=== PATIENT | male | born 1960 | race Caucasian/White ===

== ENCOUNTER 2016-11-02 11:05 | Emergency (ER) | payer MEDICARE ==
[~2016-11-02] VITALS: Ht 182.9 cm; Wt 76.6 kg
[2016-11-02] MEDS ORDERED: OXYC1TAB63 PO (11:24)
[2016-11-02] MEDS ORDERED: ALPR.5 PO (11:24)
[2016-11-02] MEDS ORDERED: CELE200C PO (11:24)
[2016-11-02] MEDS ORDERED: GABA600T PO (11:24)
[2016-11-02] MEDS ORDERED: LACO100 PO (11:24)
[2016-11-02] MEDS ORDERED: SERT-129 PO (11:24)
[2016-11-02 11:28] VITALS: BP 126/81; PULSE 83; RESP 20; TEMP 98; O2SAT 97
[2016-11-02] MEDS ORDERED: KETOROLAC TROMETHAMINE 60 MG/2 ML (IM) VIAL IM ONE (11:45)
[2016-11-02] MEDS ORDERED: ORPHENADRINE INJ 60 MG/2 ML AMP IM ONE (11:45)
--- NOTE | 2016-11-02 11:45 | PD ---
HPI Chief Complaint: Back/ Neck Pain or Injury Time Seen by Provider: 11:25 Travel History International Travel<30 days: No Contact w/Intl Traveler<30days: No Traveled to known affect area: No History of Present Illness HPI 56 -year-old male with history of chronic back pain presents to the emergency room for evaluation of the same. States about 2 weeks ago he was lifting heavy boxes and has had mid thoracic back pain since. Pain radiates to both sides of his back. He has been taking his prescribed oxycodone and hoping it would get better on its own but it seems to be worsening. He is concerned for a slipped disc. He has not been taking any anti-inflammatories. Patient has had neck surgery. Denies upper or lower extremity paresthesias, saddle anesthesia, difficulty walking, loss of bowel or bladder control, weight loss, fevers, and IV drug use. PFSH Past Medical History Anxiety: Yes Diminished Hearing: No Musculoskeletal: Yes (CHRONIC BACK PAIN, DJD, DDD) Seizures: Yes Tetanus Vaccination: < 5 Years Influenza Vaccination: No ?: Not Social History Alcohol Use: Yes (rare) Tobacco Use: Yes (1/2 ppd) Substance Use: No Allergies-Medications (Allergen,Severity, Reaction): Coded Allergies: Erythromycin (Verified Allergy, Unknown, , 11/02/16) Penicillin (Verified Allergy, Unknown, , 11/02/16) Reported Meds & Prescriptions Reported Meds & Active Scripts Active Robaxin (Methocarbamol) 750 Mg Tab 750 Mg PO Q8HR Ibuprofen 600 Mg Tab 600 Mg PO Q8HR PRN Reported Xanax (Alprazolam) 0.5 Mg Tab 0.5 Mg PO Q6H PRN Sertraline (Sertraline HCl) 100 Mg Tab 100 Mg PO DAILY Celebrex (Celecoxib) 200 Mg Cap 200 Mg PO BID Vimpat (Lacosamide) 100 Mg Tab 250 Mg PO BID Gabapentin 600 Mg Tab 600 Mg PO TID Oxycodone-Acetaminophen 5-325 mg Tab 1-2 Tab PO Q6H PRN Review of Systems Except as stated in HPI: all other systems reviewed are Neg Physical Exam Narrative GENERAL: Well-nourished, well-developed male in no acute distress. Afebrile. Ambulatory. SKIN: Focused skin assessment warm/dry. No erythema or ecchymosis. HEAD: Normocephalic. EYES: No scleral icterus. No injection or drainage. NECK: Supple, trachea midline. No JVD or lymphadenopathy. CARDIOVASCULAR: Regular rate and rhythm without murmurs, gallops, or rubs. RESPIRATORY: Breath sounds equal bilaterally. No accessory muscle use. BACK: Mild tenderness to palpation of the midline thoracic spine. No obvious deformity. No CVA tenderness. 2+ patellar and Achilles reflexes are equal bilaterally. 5/5 strength in bilateral lower extremities. Data Data Last Documented VS Vital Signs Date Time Temp Pulse Resp B/P Pulse Ox O2 Delivery O2 Flow Rate FiO2 11/02/16 11:33 20 11/02/16 11:28 98.0 83 126/81 97 Orders Spine, Thoracic-Ap/Lat/Sw(3vw) (11/02/16 ) Ketorolac Inj (Toradol Inj) (11/02/16 11:45) Orphenadrine Inj (Norflex Inj) (11/02/16 11:45) MDM Medical Decision Making Medical Screen Exam Complete: Yes Emergency Medical Condition: Yes Medical Record Reviewed: Yes Differential Diagnosis Muscle spasm, strain, spondylolisthesis, slipped disc, fracture unlikely Narrative Course 56-year-old male with history of chronic back pain presents to the emergency room for evaluation of mid back pain after lifting heavy boxes 2 weeks ago. His prescribed medications have not been helping. There is mild midline tenderness of thoracic spine without step-off deformity. No focal neurological deficits or red flag symptoms. Patient is ambulatory. Strength 5/5 and equal in bilateral lower extremities. 2+ Achilles and patellar reflexes are equal bilaterally. X-ray shows no acute bony abnormality. Patient given Toradol and Norflex in the emergency room. He was told to follow-up with his primary care physician for outpatient MRI if symptoms persist. Discharged with ibuprofen and Robaxin and told to return to the emergency room for worsening symptoms. He understands and agrees to plan. Diagnosis Primary Impression: Acute mid back pain Referrals: [facility] Patient Instructions: General Instructions, Thoracic Back Strain (ED) Additional Instructions: Rest and drink plenty of fluids. Take Robaxin as directed, as needed for pain. In addition to prescribe pain medication, take ibuprofen with food as directed, as needed for pain. Apply ice to the affected area for 20 minutes at a time, as needed for pain and swelling. Follow-up with a primary care physician. Return to the emergency room for worsening symptoms. Med/Other Pt SpecificInfo: Prescription(s) given Scripts Methocarbamol (Robaxin)750 Mg [id number] Mg PO Q8HR #21 TAB Ref 0 Prov:Brandon Osorio MD 11/02/16 Ibuprofen 600 Mg [id number] Mg PO Q8HR PRN (PAIN) #21 TAB Ref 0 Prov:Brandon Osorio MD 11/02/16 Disposition: 01 DISCHARGE HOME Condition: Stable Amy Peraza Nov 02, 2016 11:45
[2016-11-02] MEDS ORDERED: ROBA750T PO (12:26)
[2016-11-02] MEDS ORDERED: IBUP-232 PO (12:26)
--- NOTE | 2016-11-02 12:33 | RADRPT ---
EXAM DATE/TIME: 11/02/2016 11:41 [facility] COMPARISON: No previous studies available for comparison. INDICATIONS : Complains of upper back pain after heavy lifting. MEDICAL HISTORY : None. SURGICAL HISTORY : Fusion, cervical. ENCOUNTER: Initial ACUITY: 1 week PAIN SCORE: 8/10 LOCATION: Thoracic spine FINDINGS: There is normal alignment of the thoracic vertebral bodies. Vertebral body height is maintained. No evidence of fracture or subluxation. Pedicles are intact at all levels. The paravertebral reflecti ons are not thickened. There is mild curvature of the thoracic spine to the right. CONCLUSION: Mild curvature to the right. Otherwise, unremarkable exam. Saud Connor MD on November 02, 2016 at 12:31 Board Certified Radiologist. This report was verified electronically.
[2016-11-02 13:00] VITALS: BP 118/78
== END 2016-11-02 13:01 | disposition home or self-care (01) ==
LOC: PHEFT 11:05
DX: M54.6 Pain in thoracic spine (principal); F17.210 Nicotine dependence, cigarettes, uncomplicated
CPT/HCPCS: 72072; 96372; 99284; J1885; J2360

== ENCOUNTER 2016-12-21 12:14 | Emergency (ER) | payer MEDICARE ==
[~2016-12-21] VITALS: Ht 182.9 cm; Wt 78.0 kg
[~2016-12-21 12:14] MED LIST: ALPR.5 PO; CELE200C PO; GABA600T PO; IBUP-232 PO; LACO100 PO; OXYC1TAB63 PO; ROBA750T PO; SERT-129 PO
[2016-12-21 12:19] VITALS: BP 151/85; PULSE 92; RESP 18; TEMP 97.4; O2SAT 99
[2016-12-21] MEDS ORDERED: DEXAMETHASONE SOD PHOS 4 MG/ML VIAL IM ONE (13:15)
[2016-12-21] MEDS ORDERED: KETOROLAC TROMETHAMINE 60 MG/2 ML (IM) VIAL IM ONE (13:15)
[2016-12-21] MEDS ORDERED: ORPHENADRINE INJ 60 MG/2 ML AMP IM ONE (13:15)
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
[2016-12-21] MEDS ORDERED: ROBA750T PO (13:18)
[2016-12-21] MEDS ORDERED: CYCL5TAB PO (13:57)
== END 2016-12-21 14:01 | disposition home or self-care (01) ==
LOC: PHEFT 12:14
DX: G89.29 Other chronic pain (principal); M54.2 Cervicalgia; M54.6 Pain in thoracic spine; F17.200 Nicotine dependence, unspecified, uncomplicated; Z87.39 Personal history of other diseases of the musculoskeletal system and connective tissue; Z86.59 Personal history of other mental and behavioral disorders; Z86.69 Personal history of other diseases of the nervous system and sense organs
CPT/HCPCS: 96372; 99284; J1100; J1885; J2360

== ENCOUNTER 2017-01-18 07:16 | Emergency (ER) | payer MEDICARE ==
[~2017-01-18] VITALS: Ht 182.9 cm; Wt 77.0 kg
[~2017-01-18 07:16] MED LIST changes: +CYCL5TAB PO; -IBUP-232 PO; -ROBA750T PO; -SERT-129 PO
[2017-01-18 07:17] VITALS: BP 143/93; PULSE 90; RESP 16; TEMP 98.4; O2SAT 97
[2017-01-18 07:25] VITALS: RESP 16; O2SAT 97
[2017-01-18] MEDS ORDERED: SODIUM CHLOR 0.9% 1000 ML INJ 1,000 ML IV ONE (07:25)
--- NOTE | 2017-01-18 07:27 | PD ---
HPI Chief Complaint: Seizure Time Seen by Provider: 07:24 Travel History International Travel<30 days: No Contact w/Intl Traveler<30days: No Traveled to known affect area: No History of Present Illness HPI The patient is a 56-year-old male who presents to the emergency department for a seizure. The patient states he has a history of seizures for the last 4-5 years, underwent a previous workup in [facility] including MRI and EEG. The patient recently had his Vimpat increased, does not know the current dose. However, he does state his seizure frequency has decreased since the increase in Vimpat from 1-2 seizures per week to one to 2 seizures per month. Patient states he was returning from the restroom this morning when he had a seizure. He denies any tongue trauma or urinary incontinence. He does complain of mild headache, right sided neck pain, left-sided rib pain after the seizure. The patient is currently on Vimpat, Neurontin, and Xanax. The patient states he has been residing in [place] since the beginning of the year, and he'll take care of his [id number] who recently had a stroke. He does not have a neurologist in the local area, states he is unable to see a neurologist will take Medicare a and B. He denies any acute focal deficits. He denies any abdominal pain or vomiting. Symptoms are moderate, possibly exacerbated by history of seizures, and self alleviating. PFSH Past Medical History Anxiety: Yes Diminished Hearing: No Musculoskeletal: Yes (CHRONIC BACK PAIN, DJD, DDD) Seizures: Yes Past Surgical History Other Surgery: Yes (facial reconstruction) Social History Alcohol Use: Yes (rare) Tobacco Use: Yes (1/2 ppd) Substance Use: No Allergies-Medications (Allergen,Severity, Reaction): Coded Allergies: erythromycin base (Unverified Allergy, Unknown, , 01/18/17) penicillin G (Unverified Allergy, Unknown, , 01/18/17) Reported Meds & Prescriptions Reported Meds & Active Scripts Active Flexeril (Cyclobenzaprine HCl) 5 Mg Tab 5 Mg PO TID 7 Days Reported Xanax (Alprazolam) 0.5 Mg Tab 0.5 Mg PO Q6H PRN Celebrex (Celecoxib) 200 Mg Cap 200 Mg PO BID Vimpat (Lacosamide) 100 Mg Tab 250 Mg PO BID Oxycodone-Acetaminophen 5-325 mg Tab 1-2 Tab PO Q6H PRN Review of Systems Except as stated in HPI: all other systems reviewed are Neg General / Constitutional: No: Fever HENT: Positive: Headaches, Neck Pain Cardiovascular: Positive: Chest Pain or Discomfort (left lateral chest wall pain) Respiratory: No: Shortness of Breath Gastrointestinal: No: Nausea, Vomiting, Abdominal Pain Neurologic: Positive: Seizures, No: Focal Abnormalities, Change in Mentation, Paresthesia, Sensory Disturbance Physical Exam Narrative GENERAL: Awake, alert, nontoxic-appearing 56-year-old male who appears his stated age and is in no acute respiratory distress. SKIN: Focused skin assessment warm/dry. HEAD: Atraumatic. Normocephalic. EYES: Pupils equal and round. Pupils are 4 mm bilateral and reactive. EOMs are intact. ENT: No nasal bleeding or discharge. Mucous membranes pink and moist. Breath smells of alcohol. NECK: Trachea midline. No JVD. Cervical collar in place. Mild tenderness of the right paravertebral muscle. CARDIOVASCULAR: Regular rate and rhythm. No murmur appreciated. Tenderness over the lateral inferior chest wall. RESPIRATORY: No accessory muscle use. Clear to auscultation. Breath sounds equal bilaterally. GASTROINTESTINAL: Abdomen soft, non-tender, nondistended. No tenderness over the right or left upper quadrant. MUSCULOSKELETAL: No obvious deformities. No clubbing. No cyanosis. No edema. NEUROLOGICAL: Awake and alert. No obvious cranial nerve deficits. Motor grossly within normal limits. Normal speech. Nonfocal. Oriented 4. Follows commands without difficulty. PSYCHIATRIC: Appropriate mood and affect; insight and judgment normal. Data Data Last Documented VS Vital Signs Date Time Temp Pulse Resp B/P (MAP) Pulse Ox O2 Delivery O2 Flow Rate FiO2 01/18/17 07:25 16 97 Room Air 01/18/17 07:25 90 01/18/17 07:17 98.4 143/93 (110) Orders Orders Complete Blood Count With Diff (01/18/17 07:25) Alcohol (Ethanol) (01/18/17 07:25) Electrocardiogram (01/18/17 ) Ct Brain W/O Iv Contrast(Rout) (01/18/17 ) Blood Glucose (01/18/17 07:25) Ecg Monitoring (01/18/17 07:25) Iv Access Insert/Monitor (01/18/17 07:25) Oximetry (01/18/17 07:25) Sodium Chlor 0.9% 1000 Ml Inj (Ns 1000 M (01/18/17 07:25) Sodium Chloride 0.9% Flush (Ns Flush) (01/18/17 07:30) Ct Cerv Spine W/O Contrast (01/18/17 ) Chest, Single Ap (01/18/17 ) Acetamin-Hydrocod 325-5 Mg ([facility] 5-325 (01/18/17 08:00) Comprehensive Metabolic Panel (01/18/17 07:54) Labs Laboratory Tests Test 01/18/17 07:31 White Blood Count 13.0 TH/MM3 Red Blood Count 4.65 MIL/MM3 Hemoglobin 15.4 GM/DL Hematocrit 45.5 % Mean Corpuscular Volume 97.9 FL Mean Corpuscular Hemoglobin 33.1 PG Mean Corpuscular Hemoglobin Concent 33.8 % Red Cell Distribution Width 12.8 % Platelet Count 319 TH/MM3 Mean Platelet Volume 7.6 FL Neutrophils (%) (Auto) 71.0 % Lymphocytes (%) (Auto) 21.2 % Monocytes (%) (Auto) 5.5 % Eosinophils (%) (Auto) 1.3 % Basophils (%) (Auto) 1.0 % Neutrophils # (Auto) 9.2 TH/MM3 Lymphocytes # (Auto) 2.8 TH/MM3 Monocytes # (Auto) 0.7 TH/MM3 Eosinophils # (Auto) 0.2 TH/MM3 Basophils # (Auto) 0.1 TH/MM3 CBC Comment DIFF FINAL Differential Comment Blood Urea Nitrogen 7 MG/DL Creatinine 0.66 MG/DL Random Glucose 99 MG/DL Total Protein 7.8 GM/DL Albumin 3.9 GM/DL Calcium Level 8.2 MG/DL Alkaline Phosphatase 64 U/L Aspartate Amino Transf (AST/SGOT) 26 U/L Alanine Aminotransferase (ALT/SGPT) 32 U/L Total Bilirubin 0.2 MG/DL Sodium Level 139 MEQ/L Potassium Level 3.9 MEQ/L Chloride Level 108 MEQ/L Carbon Dioxide Level 20.9 MEQ/L Anion Gap 10 MEQ/L Estimat Glomerular Filtration Rate 125 ML/MIN Ethyl Alcohol Level 245 MG/DL [facility] Medical Decision Making Medical Screen Exam Complete: Yes Emergency Medical Condition: Yes Medical Record Reviewed: Yes Interpretation(s) EKG reveals normal sinus rhythm with a rate of 91. Left axis deviation. RSR prime in V1. Last Impressions Head CT 01/18/17 0000 Signed Impressions: Service Date/Time: Wednesday, January 18, 2017 07:39 - CONCLUSION: Unremarkable noncontrast CT Hardy Ambrocio MD Cervical Spine CT 01/18/17 0000 Signed Impressions: Service Date/Time: Wednesday, January 18, 2017 07:39 - CONCLUSION: Negative trauma CT. Status post remote anterior cervical fusion. Hardy Ambrocio MD Chest x-ray reveals no pneumothorax Laboratory Tests Test 01/18/17 07:31 White Blood Count 13.0 TH/MM3 Red Blood Count 4.65 MIL/MM3 Hemoglobin 15.4 GM/DL Hematocrit 45.5 % Mean Corpuscular Volume 97.9 FL Mean Corpuscular Hemoglobin 33.1 PG Mean Corpuscular Hemoglobin Concent 33.8 % Red Cell Distribution Width 12.8 % Platelet Count 319 TH/MM3 Mean Platelet Volume 7.6 FL Neutrophils (%) (Auto) 71.0 % Lymphocytes (%) (Auto) 21.2 % Monocytes (%) (Auto) 5.5 % Eosinophils (%) (Auto) 1.3 % Basophils (%) (Auto) 1.0 % Neutrophils # (Auto) 9.2 TH/MM3 Lymphocytes # (Auto) 2.8 TH/MM3 Monocytes # (Auto) 0.7 TH/MM3 Eosinophils # (Auto) 0.2 TH/MM3 Basophils # (Auto) 0.1 TH/MM3 CBC Comment DIFF FINAL Differential Comment Blood Urea Nitrogen 7 MG/DL Creatinine 0.66 MG/DL Random Glucose 99 MG/DL Total Protein 7.8 GM/DL Albumin 3.9 GM/DL Calcium Level 8.2 MG/DL Alkaline Phosphatase 64 U/L Aspartate Amino Transf (AST/SGOT) 26 U/L Alanine Aminotransferase (ALT/SGPT) 32 U/L Total Bilirubin 0.2 MG/DL Sodium Level 139 MEQ/L Potassium Level 3.9 MEQ/L Chloride Level 108 MEQ/L Carbon Dioxide Level 20.9 MEQ/L Anion Gap 10 MEQ/L Estimat Glomerular Filtration Rate 125 ML/MIN Ethyl Alcohol Level 245 MG/DL Differential Diagnosis Differential diagnosis includes seizure, breakthrough seizure, intracranial hemorrhage, cervical fracture, rib fracture, pneumothorax, hyponatremia. Narrative Course IV was established, labs are drawn and sent, and the patient was placed on cardiac telemetry monitoring and continuous pulse oximetry monitoring. CT of the brain and cervical spine were obtained. Chest x-ray was obtained. Seizure precautions were instituted. CT of the brain and cervical spine are unremarkable. Chest x-ray reveals no pneumothorax. Alcohol level is elevated at 245. The patient's sodium level was normal. The patient was in a hurry to leave, he had a ride at bedside, he is advised to follow-up with a primary physician and/or neurologist. Patient is stable for outpatient follow-up. Diagnosis Primary Impression: Seizure Additional Impression: Alcohol intoxication Qualified Codes: F10.920 - Alcohol use, unspecified with intoxication, uncomplicated Patient Instructions: General Instructions Additional Instructions: Continue seizure medications as previously directed. Decrease alcohol intake. Follow-up with a primary physician and/or neurologist. Return if symptoms worsen or progress. Med/Other Pt SpecificInfo: No Change to Meds Disposition: 01 DISCHARGE HOME Condition: Stable Markus Sorensen MD Jan 18, 2017 07:27
[2017-01-18] MEDS ORDERED: SODIUM CHLORIDE 0.9% FLUSH 10 ML FLUSH IVF PRN (07:30)
[2017-01-18 07:45] LABS: HEMATOCRIT 45.5 % (39.0-51.0); HEMOGLOBIN 15.4 GM/DL (13.0-17.0); MEAN CELL VOLUME 97.9 FL (80.0-100.0); RED BLOOD COUNT 4.65 MIL/MM3 (4.50-5.90)
[2017-01-18 07:46] LABS: AUTOMATED NEUTROPHIL # 9.2 TH/MM3 (1.8-7.7); BASOPHIL # 0.1 TH/MM3 (0-0.2); EOSINOPHIL # 0.2 TH/MM3 (0-0.4); EOSINOPHIL % 1.3 % (0.0-4.0); LYMPH % 21.2 % (9.0-44.0); LYMPHOCYTE # 2.8 TH/MM3 (1.0-4.8); MEAN CORPUSCULAR HEMOGLOBIN 33.1 PG (27.0-34.0); MEAN CORPUSCULAR HGB CONC 33.8 % (32.0-36.0); MEAN PLATELET VOLUME 7.6 FL (7.0-11.0); MONO % 5.5 % (0.0-8.0); MONOCYTE # 0.7 TH/MM3 (0-0.9); PLATELET COUNT 319 TH/MM3 (150-450); RED CELL DISTRIBUTION WIDTH 12.8 % (11.6-17.2)
[2017-01-18] MEDS: ACETAMINOPHEN/HYDROcodone 325 MG/5 MG TAB PO ONE ×2 (08:00→08:01)
[2017-01-18 08:02] LABS: CHLORIDE 108 MEQ/L (98-107); SODIUM (NA) 139 MEQ/L (136-145)
--- NOTE | 2017-01-18 08:02 | RADRPT ---
EXAM DATE/TIME: 01/18/2017 07:39 [facility] COMPARISON: No previous studies available for comparison. INDICATIONS : Status post seizure. RADIATION DOSE: 61.40 CTDIvol (mGy) MEDICAL HISTORY : Seizures. SURGICAL HISTORY : Fusion, cervical. ENCOUNTER: Initial ACUITY: 1 day PAIN SCALE: 4/10 LOCATION: cranial TECHNIQUE: Multiple contiguous axial images were obtained of the head. Using automated exposure control and adj ustment of the mA and/or kV according to patient size, radiation dose was kept as low as reasonably a chievable to obtain optimal diagnostic quality images. DICOM format image data is available electro nically for review and comparison. FINDINGS: CEREBRUM: The ventricles are normal for age. No evidence of midline shift, mass lesion, hemorrhage or acute in farction. No extra-axial fluid collections are seen. POSTERIOR FOSSA: The cerebellum and brainstem are intact. The 4th ventricle is midline. The cerebellopontine angle i s unremarkable. EXTRACRANIAL: The visualized portion of the orbits is intact. SKULL: The calvaria is intact. No evidence of skull fracture. CONCLUSION: Unremarkable noncontrast CT Hardy Ambrocio MD on January 18, 2017 at 8:00 Board Certified Radiologist. This report was verified electronically.
--- NOTE | 2017-01-18 08:04 | RADRPT ---
EXAM DATE/TIME: 01/18/2017 07:39 [facility] COMPARISON: No previous studies available for comparison. INDICATIONS : Status post seizure. Neck pain. RADIATION DOSE: 26.36 CTDIvol (mGy) MEDICAL HISTORY : Seizures. SURGICAL HISTORY : Fusion, cervical. ENCOUNTER: Initial ACUITY: 1 day PAIN SCALE: 5/10 LOCATION: Right neck TECHNIQUE: Volumetric scanning of the cervical spine was performed. Multiplanar reconstructions i n the sagittal, coronal and oblique axial planes were performed. Using automated exposure control a nd adjustment of the mA and/or kV according to patient size, radiation dose was kept as low as reason ably achievable to obtain optimal diagnostic quality images. DICOM format image data is available e lectronically for review and comparison. FINDINGS: The sagittal reconstructions demonstrate normal alignment and normal prevertebral soft tissues. The d ens is intact and there is a normal atlantoaxial relationship. The patient is status post anterior ce rvical fusion at the C5-C7 level with bone grafting material and markers in place. This is well incor porated and solid. The axial images demonstrate that the vertebral bodies and posterior elements are intact. The soft ti ssues are within normal limits. There is no evidence of acute fracture or malalignment. CONCLUSION: Negative trauma CT. Status post remote anterior cervical fusion. Hardy Ambrocio MD on January 18, 2017 at 8:01 Board Certified Radiologist. This report was verified electronically.
[2017-01-18 08:05] LABS: ALBUMIN 3.9 GM/DL (3.4-5.0); BICARBONATE 20.9 MEQ/L (21.0-32.0); CALCIUM 8.2 MG/DL (8.5-10.1); GLUCOSE,RANDOM 99 MG/DL (74-106)
[2017-01-18 08:06] LABS: BLOOD UREA NITROGEN 7 MG/DL (7-18)
[2017-01-18 08:08] LABS: ALT (GPT) 32 U/L (12-78); AST (GOT) 26 U/L (15-37)
[2017-01-18 08:09] LABS: CREATININE 0.66 MG/DL (0.60-1.30); GLOMERULAR FILTRATION RATE 125 ML/MIN (>89)
[2017-01-18 08:10] LABS: TOTAL BILIRUBIN ADULT 0.2 MG/DL (0.2-1.0); TOTAL PROTEIN 7.8 GM/DL (6.4-8.2)
[2017-01-18 08:11] LABS: ALKALINE PHOSPHATASE 64 U/L (45-117)
[2017-01-18 08:17] VITALS: BP 146/91
--- NOTE | 2017-01-18 08:26 | RADRPT ---
EXAM DATE/TIME: 01/18/2017 07:54 [facility] COMPARISON: No previous studies available for comparison. INDICATIONS : Left side chest pain post seizure. MEDICAL HISTORY : Seizure disorder. Chronic back pain. SURGICAL HISTORY : Fusion, cervical. Lumbar surgery, Facial reconstruction. Right hip tumor removal. ENCOUNTER: Initial ACUITY: 1 day PAIN SCORE: 8/10 LOCATION: Left chest FINDINGS: A single view of the chest demonstrates the lungs to be symmetrically aerated without evidence of mas s, infiltrate or effusion. The cardiomediastinal contours are unremarkable. Lower cervical fixation hardware. Osseous structures are intact. CONCLUSION: 1. No acute cardiopulmonary disease. Carlos Zamora MD on January 18, 2017 at 8:24 Board Certified Radiologist. This report was verified electronically.
--- NOTE | 2017-01-18 22:16 | EKG ---
Date Performed: 01/18/2017 Time Performed: 07:33:04 PTAGE: 56 years EKG: Sinus rhythm MARKED LEFT AXIS DEVIATION INCOMPLETE RIGHT BUNDLE BRANCH BLOCK ABNORMAL ECG NO PREVIOUS TRACING DOCTOR: Neetu Morris Interpretating Date/Time 01/18/2017 22:16:06
[2017-01-22] MEDS ORDERED: GABA600T PO (18:06)
[2017-01-22] MEDS ORDERED: TRAM50TA PO ×2 (21:21→21:25)
[2017-01-22] MEDS ORDERED: ZOFR4TAB3 SL (21:21)
[2017-01-22] MEDS ORDERED: BACT800T5 PO (21:22)
== END 2017-01-18 08:26 | disposition home or self-care (01) ==
LOC: PHED 07:16
DX: G40.909 Epilepsy, unspecified, not intractable, without status epilepticus (principal); F10.920 Alcohol use, unspecified with intoxication, uncomplicated; F17.200 Nicotine dependence, unspecified, uncomplicated; R07.89 Other chest pain; Y90.8 Blood alcohol level of 240 mg/100 ml or more
CPT/HCPCS: 70450; 71010; 72125; 80053; 80307; 85025; 93005; 96360; 99285; J7030